=== PATIENT | male | born 1955 | race Caucasian/White ===

== ENCOUNTER 2020-02-22 08:49 | Emergency (ER) | payer BC, MEDICARE ==
[2020-02-22 08:59] VITALS: RESP 18
[2020-02-22] MEDS ORDERED: MECLIZINE 12.5 MG TAB PO STA (09:10)
[2020-02-22] MEDS ORDERED: METOCLOPRAMIDE 5 MG/ML 2 ML VIAL IVP STA (09:10)
--- NOTE | 2020-02-22 09:14 | ED ---
General Adult HPI - General Chief complaint: Dizziness Stated complaint: vertigo Time Seen by Provider: 02/22/20 09:01 Source: patient, RN notes reviewed Mode of arrival: ambulatory Limitations: physical limitation - History of Present Illness Initial comments: Patient is a pleasant 64-year-old male presenting to the emergency department with dizziness. Onset of symptoms was when he tried to get out of bed at 6:15 AM. Onset was sudden. Patient feels he is spinning. There is mild nausea. Symptoms worsen with upright position and head movements. Patient did have similar symptoms a few years ago associated with vertigo. No confusion. No speech problems. No extremity weakness. - Related Data Previous Rx's Medication Instructions Recorded Meclizine [Antivert] 25 mg PO TID PRN #12 tab 02/22/20 Metoclopramide HCl [Reglan] 10 mg PO Q6HR PRN #15 tablet 02/22/20 Allergies Allergy/AdvReac Type Severity Reaction Status Date / Time No Known Allergies Allergy Verified 02/22/20 08:55 Review of Systems ROS Statement: Those systems with pertinent positive or pertinent negative responses have been documented in the HPI. ROS Other: All systems not noted in ROS Statement are negative. Constitutional: Denies: fever Eyes: Denies: eye pain ENT: Denies: ear pain Respiratory: Denies: cough Cardiovascular: Denies: chest pain Endocrine: Denies: fatigue Gastrointestinal: Denies: abdominal pain Genitourinary: Denies: dysuria Musculoskeletal: Denies: back pain Skin: Denies: rash Neurological: Reports: vertigo. Denies: headache, weakness, paresthesias, confusion Past Medical History Past Medical History: GERD/Reflux, Hyperlipidemia, Hypertension History of Any Multi-Drug Resistant Organisms: None Reported Past Surgical History: No Surgical Hx Reported Past Psychological History: No Psychological Hx Reported Smoking Status: Never smoker Past Alcohol Use History: Occasional Past Drug Use History: None Reported General Exam Limitations: no limitations General appearance: alert, in no apparent distress Head exam: Present: normocephalic Eye exam: Present: normal appearance, PERRL, EOMI ENT exam: Present: normal oropharynx Neck exam: Present: normal inspection Respiratory exam: Present: normal lung sounds bilaterally Cardiovascular Exam: Present: regular rate, normal rhythm GI/Abdominal exam: Present: soft. Absent: tenderness Extremities exam: Present: normal inspection, full ROM. Absent: tenderness Neurological exam: Present: alert, CN II-XII intact. Absent: motor sensory deficit Expanded Neurological exam: Present: protecting the airway Speech: Present: fluid speech Cranial nerves: EOM's Intact: Normal, Facial Sensation: Normal Cerebellar function: Finger to Nose: Normal Sensory exam: Upper Extremity Light Touch: Normal, Lower Extremity Light Touch: Normal Motor strength exam: RUE: 5, LUE: 5, RLE: 5, LLE: 5 Eye Response: (4) open spontaneously Motor Response: (6) obeys commands Verbal Response: (5) oriented Psychiatric exam: Present: normal affect, normal mood Skin exam: Present: normal color Course Vital Signs 02/22/20 02/22/20 02/22/20 08:50 10:00 10:11 Temperature 97.6 F Pulse Rate 69 78 78 Respiratory 18 18 Rate Blood Pressure 140/80 130/81 146/87 O2 Sat by Pulse 97 97 97 Oximetry EKG Findings - EKG Comments: EKG Findings:: Normal sinus rhythm 75. CT 194. QRS 104. QT 410. QTc 457. Left axis. Left anterior fascicular block. No acute ST change. Medical Decision Making - Medical Decision Making Patient reevaluated and updated. Specifically updated on thyroid nodule, and need for follow-up with that. Also notified about borderline blood sugar. Patient is able to get up and ambulate without difficulty. Patient feels much better and comfortable with discharge home. - Lab Data Result diagrams: 02/22/20 08:37 02/22/20 08:37 Lab Results 02/22/20 02/22/20 02/22/20 Range/Units 08:37 08:37 08:37 WBC 7.8 (3.8-10.6) k/uL RBC 4.90 (4.30-5.90) m/uL Hgb 15.5 (13.0-17.5) gm/dL Hct 44.0 (39.0-53.0) % MCV 89.7 (80.0-100.0) fL MCH 31.6 (25.0-35.0) pg MCHC 35.3 (31.0-37.0) g/dL RDW 12.4 (11.5-15.5) % Plt Count 220 (150-450) k/uL Neutrophils % 72 % Lymphocytes % 19 % Monocytes % 5 % Eosinophils % 2 % Basophils % 0 % Neutrophils # 5.6 (1.3-7.7) k/uL Lymphocytes # 1.5 (1.0-4.8) k/uL Monocytes # 0.4 (0-1.0) k/uL Eosinophils # 0.2 (0-0.7) k/uL Basophils # 0.0 (0-0.2) k/uL PT 10.2 (9.0-12.0) sec INR 1.0 (<1.2) APTT 22.2 (22.0-30.0) sec Sodium 137 (137-145) mmol/L Potassium 4.3 (3.5-5.1) mmol/L Chloride 105 (98-107) mmol/L Carbon Dioxide 22 (22-30) mmol/L Anion Gap 10 mmol/L BUN 18 (9-20) mg/dL Creatinine 0.84 (0.66-1.25) mg/dL Est GFR (CKD-EPI)AfAm >90 (>60 ml/min/1.73 sqM) Est GFR (CKD-EPI)NonAf >90 (>60 ml/min/1.73 sqM) Glucose 165 H (74-99) mg/dL Calcium 9.4 (8.4-10.2) mg/dL Total Bilirubin 0.8 (0.2-1.3) mg/dL AST 37 (17-59) U/L ALT 52 H (4-49) U/L Alkaline Phosphatase 86 (38-126) U/L Total Protein 7.2 (6.3-8.2) g/dL Albumin 4.5 (3.5-5.0) g/dL - Radiology Data Radiology results: report reviewed (Computed tomography scan of the brain shows no acute hemorrhage or shift. Mild atrophy and burden of nonspecific white mat ter changes. CT angiogram of the head and neck shows no embolus, dissection or aneurysm. Possible thyroid nodule.) Disposition Clinical Impression: Vertigo Disposition: HOME SELF-CARE Condition: Stable Instructions (If sedation given, give patient instructions): Dizziness (ED) Additional Instructions: Please follow-up with primary care physician in the next day or 2 for recheck. Have primary care physician review chart, as you'll need further evaluation for dizziness, thyroid nodule, and blood sugar. Return for confusion, speech problems, weakness, worsening or change in symptoms, or other concerns. Prescription sent to [facility]'s pharmacy. Prescriptions: Meclizine [Antivert] 25 mg PO TID PRN #12 tab PRN Reason: dizziness Metoclopramide HCl [Reglan] 10 mg PO Q6HR PRN #15 tablet PRN Reason: Nausea Is patient prescribed a controlled substance at d/c from ED?: No Referrals: Sarah Chapman MD [Primary Care Provider] - 1-2 days Time of Disposition: 11:25
[2020-02-22 09:58] LABS: Basophils % (A) 0 %; Eosinophils # (A) 0.2 k/uL (0-0.7); Eosinophils % (A) 2 %; HGB 15.5 gm/dL (13.0-17.5); Lymphocytes # (A) 1.5 k/uL (1.0-4.8); Lymphocytes % (A) 19 %; MCH 31.6 pg (25.0-35.0); MCHC 35.3 g/dL (31.0-37.0); MCV 89.7 fL (80.0-100.0); Mean Platelet Volume 8.3; Monocytes # (A) 0.4 k/uL (0-1.0); Monocytes % (A) 5 %; Neutrophils # (A) 5.6 k/uL (1.3-7.7); Neutrophils % (A) 72 %; Platelet Count 220 k/uL (150-450); RDW 12.4 % (11.5-15.5); WBC 7.8 k/uL (3.8-10.6)
[2020-02-22 10:08] LABS: ALT 52 U/L (4-49); AST 37 U/L (17-59); African American GFR (CKD) >90 (>60 ml/min/1.73 sqM); Albumin 4.5 g/dL (3.5-5.0); Alkaline Phosphatase 86 U/L (38-126); Anion Gap 10 mmol/L; Blood Urea Nitrogen 18 mg/dL (9-20); Calcium 9.4 mg/dL (8.4-10.2); Carbon Dioxide 22 mmol/L (22-30); Chloride 105 mmol/L (98-107); Glucose 165 mg/dL (74-99); Non-African American GFR(CKD) >90 (>60 ml/min/1.73 sqM); Potassium 4.3 mmol/L (3.5-5.1); Sodium 137 mmol/L (137-145); Total Bilirubin 0.8 mg/dL (0.2-1.3); Total Protein 7.2 g/dL (6.3-8.2)
[2020-02-22 10:10] LABS: Partial Thromboplastin Time 22.2 sec (22.0-30.0); Prothrombin Time 10.2 sec (9.0-12.0)
--- NOTE | 2020-02-22 10:59 | CT ---
EXAMINATION TYPE: CT brain wo con DATE OF EXAM: 02/22/2020 COMPARISON: None HISTORY: dizziness CT DLP: 1134 mGycm Automated exposure control for dose reduction was used. TECHNIQUE: CT scan of the head is performed without contrast. FINDINGS: There is no acute intracranial hemorrhage or midline shift identified. There is mild diff use ventricular and sulcal prominence consistent with diffuse age-related cerebral atrophy. There a few areas of low-attenuation in the periventricular white matter most commonly related to chronic sma ll vessel ischemic change. The globes are intact and the visualized sinuses are clear. There is lef tward nasal septal deviation. Small amount of cerumen is seen within the bilateral external auditory canals. Atherosclerosis is seen of the intracranial vasculature. IMPRESSION: No acute intracranial hemorrhage or midline shift. There is mild diffuse age-related ce rebral atrophy and mild burden nonspecific white matter change, most commonly on the basis of chronic microangiopathy.
--- NOTE | 2020-02-22 11:13 | CT ---
EXAMINATION TYPE: CT angio head neck DATE OF EXAM: 02/22/2020 HISTORY: dizziness COMPARISON: CT brain same date CT DLP: 601 mGycm. Automated Exposure Control for Dose Reduction was Utilized. TECHNIQUE: CTA scan of the neck is performed with IV Contrast, patient injected with 65 mL of Isovue 370, axial images are obtained, coronal and sagittal reformatted images are reviewed. Three-D recons tructed images are created on an independent workstation and reviewed. FINDINGS: Carotid/Vascular Structures: The thoracic aorta, 3 super aortic branch vessels are patent. Left and r ight subclavian arteries show no obstruction to flow. Left and right common carotid, internal and ext ernal carotid arteries are patent. Some mild atheromatous changes present at the carotid bifurcation levels. There is no evident dissection, embolus, or aneurysm. Vertebral arteries are patent. There is a codominant appearance. Anterior and posterior circulation within the [place] show enhance d appearance, no evident aneurysm, embolus, or dissection. Cerebral vascular calcifications are prese nt. Other: Possible thyroid isthmus nodule present inferiorly. Degenerative disc changes are present with in the visualized spine. There is multilevel foraminal encroachment in the cervical spine with facet arthropathy change. Possible lymph nodes associated with the parotid glands. Some thickening of the p haryngeal soft tissues, correlate for possible tonsillitis. IMPRESSION: No evident embolus, dissection or aneurysm. Additional findings above, correlate for poss ible tonsillitis. Cerebral vascular disease. Possible thyroid nodule.
[2020-02-22 11:38] VITALS: BP 124/82; PULSE 80; TEMP 98
== END 2020-02-22 11:38 | disposition home or self-care (01) ==
LOC: EC 08:49
DX: R42 Dizziness and giddiness (principal); E04.1 Nontoxic single thyroid nodule
CPT/HCPCS: 36415; 93005; 80053; 85025; 85610; 85730; 70496; 70450; 70498; 96374; 99284; J2765; Q9967

== ENCOUNTER → 2020-03-21 | Outpatient (CLI) | payer MEDICARE ==
--- NOTE | 2020-03-22 13:06 | US ---
EXAMINATION TYPE: US thyroid st tissue head/neck DATE OF EXAM: 03/21/2020 COMPARISON: NONE CLINICAL HISTORY: E04.1 Thyroid nodule. GLAND SIZE: Right Lobe: 3.9 x 1.8 x 1.3 cm Overall Parenchyma: homogenous Left Lobe: 3.3 x 1.2 x 1.4 cm Overall Parenchyma: homogeneous Isthmus Thickness: 0.5 cm NODULES RIGHT: # of nodules measured on right: 1 1. 0.4 X 0.3 x 0.4 cm hypoechoic cystic nodule at the lower pole with well-defined margins; . This nodule is wider than tall and shows no intranodular vascularity. Prior size: No previous LEFT: # of nodules measured on left: 0 ISTHMUS: # of nodules measured in the isthmus: 1 1. 2.3 cm solid appearing nodule at the lower pole with poorly defined margins; . This nodule is w ider than tall and shows no intranodular vascularity. Prior size: No previous Bilateral neck scanned, no evidence of lymphadenopathy. Inferior to the isthmus, there appears to be a hypoechoic area measuring 2.3 cm, possible nodule. Joseph y difficult to visualize IMPRESSION: 1. Subcentimeter right lobe thyroid nodule. 2. Nodule or mass at the inferior to the isthmus measuring 2.3 cm. Positioning makes good visualizati on difficult. Recommend CT soft tissue neck with contrast to better evaluate this finding.
== END | disposition home or self-care (01) ==
LOC: RADUSWWP 15:58
PROVIDERS: ATTEND Family Medicine
DX: E04.1 Nontoxic single thyroid nodule (principal)
CPT/HCPCS: 76536

== ENCOUNTER → 2020-04-01 | Outpatient (CLI) | payer MEDICARE ==
--- NOTE | 2020-04-03 13:36 | CT ---
EXAMINATION TYPE: CT soft tissue neck w con DATE OF EXAM: 04/01/2020 COMPARISON: Correlation ultrasound 03/21/2020 HISTORY: 64-year-old male R93.89 Abnormal US, thyroid nodule TECHNIQUE: Contiguous axial scanning of the soft tissues of the neck performed with IV Contrast, claudia ent injected with 100 mL of Isovue 300. Coronal/sagittal reconstructions performed. CT DLP: 738.90 mGycm Automated exposure control for dose reduction was used. FINDINGS: Mild ectasia ascending aorta at 3.6 cm and upper descending thoracic aorta at 3.0 cm. Enhancing, slightly heterogeneous ovoid nodule at the inferior isthmus measures 2.3 x 1.[address] er of the thyroid gland shows homogeneous enhancement. The submandibular glands are satisfactory. Glands are mildly atrophic. A couple nodules within the left parotid gland measure 7 mm and 6 mm. If these are parotid space lymp h nodes, these are borderline to mildly enlarged and follow-up is recommended. Borderline sized upper cervical lymph nodes measuring up to 1.2 cm short axis on the right, axial juany ge 69 and sagittal image 38. Leftward nasal septal deviation. Mastoid air cells well pneumatized. Orbits and globes are intact. Nasopharynx appears clear. Mild soft tissue prominence of the bilateral palatine tonsils. Oropharynx otherwise clear. Epiglottis and prevertebral soft tissues appear satisfactory. Glottic and subglottic structures as well as the tracheal column and visualized upper lungs appear cl ear. Bones: Moderate spondylotic change mid to lower cervical spine. There is grade 1 anterolisthesis C4-C 5. IMPRESSION: 1. SOLID OVOID 2.3 X 1.4 CM NODULE OF THE INFERIOR ISTHMUS. FNA CAN BE CONSIDERED. 2. A COUPLE NODULES WITHIN THE LEFT PAROTID GLAND MEASURE 7 MM AND 6 MM. IF THESE REPRESENT PAROTID S PACE LYMPH NODES, THEY ARE BORDERLINE TO MILDLY ENLARGED AND FOLLOW-UP IS RECOMMENDED. RECOMMEND CLIN ICAL SURVEILLANCE WELL CONSIDERATION TO FOLLOW-UP CT IN 3 MONTHS.
== END | disposition home or self-care (01) ==
LOC: RADCTMAIN 15:57
PROVIDERS: ATTEND Family Medicine
DX: K11.8 Other diseases of salivary glands (principal); E07.89 Other specified disorders of thyroid
CPT/HCPCS: 82565; 84520; 70491; 36415; Q9967

== ENCOUNTER 2020-04-29 12:12 | Day surgery (SDC) | payer MEDICARE ==
[2020-04-29 12:31] VITALS: BP 155/77; PULSE 61; RESP 16; TEMP 97.5
--- NOTE | 2020-04-29 14:31 | US ---
ULTRASOUND GUIDED FNA THYROID BIOPSY: CLINICAL HISTORY: Isthmus thyroid nodule FINDINGS: The procedure was explained to the patient. The risks, complications, benefits and alternatives were discussed and any questions were answered. Informed consent was obtained. Patient was placed supin e on the ultrasound table and prepped and draped in the usual sterile fashion. Utilizing a 25 gauge needle, five passes were made into the requested nodule. Patient was stable throughout the procedure. Pathology is pending. All elements of maximal barrier technique were utilized. IMPRESSION: 1. Successful ultrasound guided FNA thyroid biopsy.
== END 2020-04-29 13:40 | disposition home or self-care (01) ==
LOC: RADPROMAIN 12:12
PROVIDERS: ATTEND Otolaryngology
DX: E04.1 Nontoxic single thyroid nodule (principal)
CPT/HCPCS: 10005; 88173; 88305

== ENCOUNTER → 2020-11-11 | Outpatient (CLI) | payer MEDICARE ==
--- NOTE | 2020-11-11 12:44 | US ---
EXAMINATION TYPE: US thyroid st tissue head/neck DATE OF EXAM: 11/11/2020 COMPARISON: 04/29/2020, 03/21/2020 CLINICAL HISTORY: E04.1 THYROID NODULE. Thyroid nodules GLAND SIZE: Right Lobe: 4.3 x 1.4 x 1.7 cm cm Overall Parenchyma: homogenous Left Lobe: 4.3 x 1.9 x 1.5 cm Overall Parenchyma: homogeneous Isthmus Thickness: .4 cm NODULES RIGHT: # of nodules measured on right: 1 1. .4 X .4 x .4 cm cystic or almost completely cystic, anechoic nodule, which is wider than tall, w ith smooth margins, without echogenic foci. Prior size: .4 x .3 x .4 cm LEFT: # of nodules measured on left: 0 ISTHMUS: # of nodules measured in the isthmus: 1 1. 1.7 X 1.2 x 2.0 cm solid or almost completely solid, hypoechoic nodule, which is wider than tall , with ill-defined margins, without echogenic foci. Prior size: 2.3 cm. This was biopsied on 04/29/2020 Bilateral neck scanned, no evidence of lymphadenopathy. IMPRESSION: Mildly suspicious nodule isthmus. Follow-up imaging in 2 years is recommended. 2017 ACR TI-RADS LEVEL: TR-RADS 3 - Mildly Suspicious: Follow if > 1.5 cm, FNA if > 2.5 cm *Highest TI-RADS level nodule reported
== END | disposition home or self-care (01) ==
LOC: RADUSWWP 09:28
PROVIDERS: ATTEND Otolaryngology
DX: E04.1 Nontoxic single thyroid nodule (principal)
CPT/HCPCS: 76536

== ENCOUNTER → 2021-06-02 | Outpatient (CLI) | payer MEDICARE ==
--- NOTE | 2021-06-02 08:46 | US ---
EXAMINATION TYPE: US thyroid st tissue head/neck DATE OF EXAM: 06/02/2021 COMPARISON: US's CLINICAL HISTORY: E04.1 Thyroid nodule, K11.8 Left parotid nodule. GLAND SIZE: Right Lobe: 3.9 x 1.7 x1.9 cm Overall Parenchyma: homogenous Left Lobe: 4.3 x 2.2 x 1.9 cm Overall Parenchyma: homogeneous Isthmus Thickness: 0.4 cm NODULES RIGHT: # of nodules measured on right: 1 1. 0.4 X 0.4 x 0.4 cm, lower mid, cystic or almost completely cystic, anechoic nodule, which is wid er than tall, with smooth margins, without echogenic foci. Prior size: 0.4 x 0.4 x 0.4 cm LEFT: # of nodules measured on left: 0 ISTHMUS: # of nodules measured in the isthmus: 1 1. 1.5 X 1.2 x 2.5 cm solid or almost completely solid, isoechoic nodule, which is wider than tall, with smooth margins, without echogenic foci. Prior size: 1.7 x 1.2 x 2.0 cm Bilateral neck scanned, no evidence of lymphadenopathy. Parathyroid adenoma not appreciated. IMPRESSION: Stable thyroid nodules as discussed above. 2017 ACR TI-RADS LEVEL: TR-RADS 3 - Mildly Suspicious: Follow if > 1.5 cm, FNA if > 2.5 cm *Highest TI-RADS level nodule reported
== END | disposition home or self-care (01) ==
LOC: RADUSWWP 08:14
PROVIDERS: ATTEND Otolaryngology
DX: E04.2 Nontoxic multinodular goiter (principal)
CPT/HCPCS: 76536

== ENCOUNTER → 2022-05-28 | Outpatient (CLI) | payer MEDICARE ==
--- NOTE | 2022-05-28 10:27 | US ---
EXAMINATION TYPE: US thyroid st tissue head/neck DATE OF EXAM: 05/28/2022 COMPARISON: Thyroid ultrasound 06/02/2021 CLINICAL HISTORY: E04.1 THYROID NODULE. Hx thyroid nodules. No thyroid meds GLAND SIZE: Right Lobe: 4.3 x 1.5 x 1.3 cm Overall Parenchyma: homogenous Left Lobe: 4.0 x 2.2 x 1.3 cm Overall Parenchyma: homogeneous Isthmus Thickness: 0.3 cm NODULES RIGHT: # of nodules measured on right: 1 1. 0.5 X 0.6 x 0.4 cm, lower mid, cystic or almost completely cystic, anechoic nodule, which is wid er than tall, with smooth margins, with echogenic foci. Prior size: 0.4 x 0.4 x 0.4 cm LEFT: # of nodules measured on left: 0 ISTHMUS: # of nodules measured in the isthmus: 1 1. 1.7 X 2.5 x 1.4 cm solid or almost completely solid, isoechoic nodule, which is wider than tall, with smooth margins, without echogenic foci. Prior size: 1.5 x 2.5 x 1.2 cm Bilateral neck scanned, no evidence of lymphadenopathy. IMPRESSION: Stable thyroid nodules as discussed above. 2017 ACR TI-RADS LEVEL: TR-RADS 3 - Mildly Suspicious: Follow if > 1.5 cm, FNA if > 2.5 cm *Highest TI-RADS level nodule reported
== END | disposition home or self-care (01) ==
LOC: RADUSWWP 09:55
PROVIDERS: ATTEND Otolaryngology
DX: E04.2 Nontoxic multinodular goiter (principal); K11.8 Other diseases of salivary glands
CPT/HCPCS: 76536

== ENCOUNTER → 2023-03-28 | Outpatient (CLI) | payer MEDICARE ==
--- NOTE | 2023-03-28 09:56 | XR ---
EXAM TYPE: LUMBAR SPINE X RAY SERIES COMPARISON: NONE HISTORY: Low back pain TECHNIQUE: 4 views are submitted. FINDINGS: Alignment is anatomic. The pedicles are intact. The transverse processes are intact. Diffuse osteo penia with multilevel hypertrophic and degenerative changes severe changes at L3-4 and L4-5. Multilev el moderate to severe facet arthropathy. There is no spondylolysis or spondylolisthesis. IMPRESSION: 1. Multilevel degenerative disc disease with severe changes at L3-4 and L4-L5.
== END | disposition home or self-care (01) ==
LOC: RADXRMAIN 08:43
PROVIDERS: ATTEND Family Medicine
DX: M51.36 Other intervertebral disc degeneration, lumbar region (principal)
CPT/HCPCS: 72110

== ENCOUNTER → 2023-04-12 | Outpatient (CLI) | payer MEDICARE ==
--- NOTE | 2023-04-13 17:20 | MR ---
EXAMINATION TYPE: MR lumbar spine wo con DATE OF EXAM: 04/12/2023 10:05 AM COMPARISON: Radiograph 03/28/2023.. CLINICAL INDICATION: Male, 67 years old with history of M54.50 low back pain unspecified; PHH, Lower back pain. TECHNIQUE: Multi planar, multi sequence imaging was performed utilizing: T1-weighted, T2-weighted, a nd turbo inversion recovery imaging of the lumbar spine. IV Contrast: 9 cc Gadavist. None. FINDINGS: Alignment: The lumbar vertebral bodies have preserved heights and alignment. Cord: The conus medullaris and the distal spinal cord appear unremarkable with regards to their signa l intensity and morphology. Bones/Discs: Multilevel degeneration changes with disc space narrowing, facet joint arthropathy and o steophyte formation with findings worse at L4-L5. T12-L1: No evidence of significant spinal canal stenosis or neural foraminal stenosis. L1-L2: No evidence of significant spinal canal stenosis. Facet joint arthropathy mild to moderate td ateral neural foraminal stenosis. L2-L3: No evidence of significant spinal canal stenosis. Facet joint arthropathy mild bilateral neura l foraminal stenosis. L3-L4: Disc bulge and facet joint arthropathy result in mild spinal canal and moderate to severe bila teral neural foraminal stenosis. L4-L5: Osteophyte is seen in left posterior and left-sided central facet joint arthropathy result in mild spinal canal and moderate bilateral neural foraminal stenosis. L5-S1: The disc is rounded posterior morphology without significant spinal canal stenosis. Facet join t arthropathy with moderate left mild right.. No significant spinal canal or neural foraminal stenosis in the remainder of the visualized levels. Other findings: None. IMPRESSION: 1. No evidence of significant spinal canal stenosis. 2. Multilevel disc degeneration with associated osteoarthritic changes worse at L4-L5. There is mode rate bilateral L3-L4 and L4-L5 neural foraminal stenosis.
== END | disposition home or self-care (01) ==
LOC: RADMRIMAIN 07:36
PROVIDERS: ATTEND Family Medicine
DX: M51.36 Other intervertebral disc degeneration, lumbar region (principal); M99.73 Connective tissue and disc stenosis of intervertebral foramina of lumbar region; M47.816 Spondylosis without myelopathy or radiculopathy, lumbar region
CPT/HCPCS: 72148

== ENCOUNTER 2025-02-08 01:27 | Emergency (ER) | payer MEDICARE ==
[2025-02-08 01:37] VITALS: PULSE 79; RESP 16
[2025-02-08] MEDS: DEXAMETHASONE SOD PHOSPHATE 10 MG/ML 1 ML VIAL IVP STA (02:08)
[2025-02-08] MEDS: LIDOCAINE 4% PATCH TOPICAL ONE (02:08)
[2025-02-08] MEDS: KETOROLAC 15 MG/ML 1 ML VIAL IVP STA (02:43)
[2025-02-08] MEDS: HYDROmorphone 1 MG/ML 1 ML SYRINGE IVP STA (02:44)
--- NOTE | 2025-02-08 04:02 | ED ---
Back Pain HPI <Nicolas Bloom - Last Filed: 02/08/25 05:56> - General Source: patient, family, EMS Limitations: no limitations <Christian Esteban - Last Filed: 02/11/25 01:58> - General Chief Complaint: Back Pain/Injury Stated Complaint: Back Pain Time Seen by Provider: 02/08/25 01:37 - History of Present Illness Initial Comments: 69-year-old male presenting with chief complaint pain.Pain is located in the lower back and is worse on the left side. Radiates down his left leg. No loss of bowel or bladder control or saddle paresthesia. He states that he was chopping wood earlier today and thinks that he probably strained his back. He does have history of lower back pain years ago from a strain. Abdominal pain, urinary symptoms, fever, chills, nausea, vomiting. No numbness or tingling. (Christian Esteban) - Related Data Home Medications Medication Instructions Recorded Confirmed Aspirin EC [Ecotrin Low Dose] 81 mg PO DAILY 02/22/20 04/29/20 Atorvastatin Calcium [Lipitor] 10 mg PO HS 02/22/20 04/29/20 Cholecalciferol [Vitamin D3 (25 5,000 unit PO DAILY 02/22/20 04/29/20 Mcg = 1000 Iu)] Famotidine 40 mg PO DAILY 02/22/20 04/29/20 Fish Oil/Dha/Epa [Fish Oil 1,200 2 cap PO DAILY 02/22/20 04/29/20 mg Fish Oil] Loratadine [Claritin] 10 mg PO DAILY 02/22/20 04/29/20 dilTIAZem HCL [Diltiazem HCl 24Hr 420 mg PO DAILY 02/22/20 04/29/20 ER ([place])] lisinopriL [Zestril] 10 mg PO HS 02/22/20 04/29/20 Allergies Allergy/AdvReac Type Severity Reaction Status Date / Time No Known Allergies Allergy Verified 02/08/25 01:29 Review of Systems ROS Other: All systems not noted in ROS Statement are negative. <Nicolas Bloom - Last Filed: 02/08/25 05:56> ROS Other: All systems not noted in ROS Statement are negative. <Christian Esteban - Last Filed: 02/11/25 01:58> ROS Statement: Those systems with pertinent positive or pertinent negative responses have been documented in the HPI. Past Medical History Past Medical History: GERD/Reflux, Hyperlipidemia, Hypertension, Thyroid Disorder History of Any Multi-Drug Resistant Organisms: None Reported Past Surgical History: No Surgical Hx Reported Past Psychological History: No Psychological Hx Reported Smoking Status: Never smoker Past Alcohol Use History: Occasional Past Drug Use History: None Reported - Past Family History Father History Unknown: Yes <Christian Esteban - Last Filed: 02/11/25 01:58> General Exam Limitations: no limitations General appearance: alert, in no apparent distress Head exam: Present: atraumatic, normocephalic, normal inspection Eye exam: Present: normal appearance, EOMI Neck exam: Present: normal inspection. Absent: meningismus Respiratory exam: Present: normal lung sounds bilaterally. Absent: respiratory distress, wheezes, rales, rhonchi, stridor Cardiovascular Exam: Present: regular rate, normal rhythm, normal heart sounds. Absent: systolic murmur, diastolic murmur, rubs, gallop, clicks Back exam: Present: normal inspection, tenderness Neurological exam: Present: alert, oriented X3 Psychiatric exam: Present: normal affect, normal mood Skin exam: Present: warm, dry, normal color <Christian Esteban - Last Filed: 02/11/25 01:58> Course Vital Signs 02/08/25 02/08/25 01:29 06:02 Temperature 98.2 F 98.0 F Pulse Rate 79 79 Respiratory 16 16 Rate Blood Pressure 167/82 144/70 O2 Sat by Pulse 93 L 96 Oximetry Medical Decision Making <Christian Esteban - Last Filed: 02/11/25 01:58> - Medical Decision Making Was pt. sent in by a medical professional or institution (, PA, [employer], urgent care, hospital, or shelter...) When possible be specific @ -[No] Did you speak to anyone other than the patient for history (EMS, parent, family, police, friend...)? What history was obtained from this source @ - Did you review nursing and triage notes (agree or disagree)? Why? @ -[I reviewed and agree with nursing and triage notes] Were old charts reviewed (outside hosp., previous admission, EMS record, old EKG, old radiological studies, urgent care reports/EKG's, shelter records)? Report findings @ -[No old charts were reviewed] Differential Diagnosis (chest pain, altered mental status, abdominal pain women, abdominal pain men, vaginal bleeding, weakness, fever, dyspnea, syncope, headache, dizziness, GI bleed, back pain, seizure, CVA, palpatations, mental health, musculoskeletal)? @ -[facility] Differential Back Pain: Strain, zoster, cauda equina syndrome, epidural abscess, vertebral osteomyelitis, discitis, fracture, subluxation, disc herniation, DJD, spinal stenosis, dissection, AAA, pancreatitis, peptic ulcer disease, pyelonephritis, kidney stone… this is not meant to be an all-inclusive list. EKG interpreted by me (3pts min.). @ -[As above] X-rays interpreted by me (1pt min.). @ -[None done] CT interpreted by me (1pt min.). @ -[None done] U/S interpreted by me (1pt. min.). @ -[None done] What testing was considered but not performed or refused? (CT, X-rays, U/S, labs)? Why? @ -[None] What meds were considered but not given or refused? Why? @ -[None] Did you discuss the management of the patient with other professionals (professionals i.e. , PA, [employer], lab, RT, psych nurse, dialysis social worker, tire service supervisor, teacher, press officer, case technician)? Give summary @ -[No] Was smoking cessation discussed for >3mins.? @ -[No] Was critical care preformed (if so, how long)? @ -[No] Were there social determinants of health that impacted care today? How? (Homelessness, low income, unemployed, alcoholism, drug addiction, transportation, low edu. Level, literacy, decrease access to med. care, retirement, rehab)? @ -[No] Was there de-escalation of care discussed even if they declined (Discuss DNR or withdrawal of care, Hospice)? DNR status @ -[No] What co-morbidities impacted this encounter? (DM, HTN, Smoking, COPD, CAD, Cancer, CVA, ARF, Chemo, Hep., AIDS, mental health diagnosis, sleep apnea, morbid obesity)? @ -[None] Was patient admitted / discharged? Hospital course, mention meds given and route, prescriptions, significant lab abnormalities, going to OR and other pertinent info. @ -6-year-old male presenting with chief complaint of lower back pain. No red flag symptoms. Patient is treated with pain medication and on reassessment he does have improvement but he still having difficulty with ambulating. CT is obtained, results are pending and patient is signed out to my attending for further management and disposition. Anticipated discharge instructions are uploaded in subjective change Undiagnosed new problem with uncertain prognosis? @ -[No] Drug Therapy requiring intensive monitoring for toxicity (Heparin, Nitro, Insulin, Cardizem)? @ -[No] Were any procedures done? @ -[No] Diagnosis/symptom? @ -[default] Acute, or Chronic, or Acute on Chronic? @ -[default] Uncomplicated (without systemic symptoms) or Complicated (systemic symptoms)? @ -[default] Side effects of treatment? @ -[No] Exacerbation, Progression, or Severe Exacerbation? @ -[No] Poses a threat to life or bodily function? How? (Chest pain, [place], [place], pneumonia, PE, COPD, DKA, ARF, appy, cholecystitis, CVA, Diverticulitis, Homicidal, Suicidal, threat to staff... and all critical care pts) @ -[No] (Christian Esteban) Disposition <Nicolas Bloom - Last Filed: 02/08/25 05:56> Is patient prescribed a controlled substance at d/c from ED?: No <Christian Esteban - Last Filed: 02/11/25 01:58> Clinical Impression: Strain of lumbar region Disposition: HOME SELF-CARE Condition: Good Instructions (If sedation given, give patient instructions): Acute Low Back Pain (ED) Additional Instructions: Follow-up with PCP. Report back to ER with any new or worsening symptoms. Referrals: Sarah Chapman MD [Primary Care Provider] - 1-2 days Ruth Montenegro DO [Doctor of Osteopathic Medicine] - 1-2 days
--- NOTE | 2025-02-08 05:44 | CT ---
EXAM: CT Lumbar Spine Without Intravenous Contrast CLINICAL HISTORY: ITS.REASON CT Reason: pain TECHNIQUE: Axial computed tomography images of the lumbar spine without intravenous contrast. CTDI is 34 mGy and DLP is 1306.4 mGy-cm. This CT exam was performed using one or more of the following dose reduction techniques: automated exposure control, adjustment of the mA and/or kV according to patient size, and/or use of iterative reconstruction technique. COMPARISON: No relevant prior studies available. FINDINGS: Vertebrae: No acute fracture. No sagittal subluxation. 9 mm sclerotic lesion left iliac crest, likely bone island. Discs/spinal canal/neural foramina: No significant spinal canal stenosis. Moderate bilateral L3-4 and L4-5 foraminal stenosis. Soft tissues: Unremarkable. IMPRESSION: No acute fracture.
[2025-02-08] MEDS: traMADol 50 MG STARTER PACK 3 TAB BTL PO STA (05:57)
[2025-02-08 06:11] VITALS: BP 144/70; TEMP 98
== END 2025-02-08 06:02 | disposition home or self-care (01) ==
LOC: EC 01:27
DX: S39.012A Strain of muscle, fascia and tendon of lower back, initial encounter (principal)
CPT/HCPCS: 72131; 99284; 96374; 96375 ×2; J1100; J1171; J1885